=== PATIENT | female | born 1965 | race Caucasian/White ===

== ENCOUNTER 2020-08-22 12:04 | Inpatient (IN) | payer BC, OTHER ==
[~2020-08-22] VITALS: Ht 160 cm; Wt 96.0 kg
--- NOTE | 2020-08-22 12:24 | NUR ---
First contact with pt. Pt c/o L flank pain x2 days. Pt with hx of kidney stones, states this feels similar. Pt ambulatory to bathroom and back to bed without difficulty. Urine sample obtained, labeled at bedside, sent to lab. Pt placed in gown, positioned for comfort in bed. Continuous oxygen and BP Monitors applied, all safety measures observed.
[2020-08-22 12:41] LABS: MICROSCOPIC INDICATED
[2020-08-22] MEDS ORDERED: KETOROLAC 30 MG/1 ML ONE (13:11)
[2020-08-22] MEDS ORDERED: ONDANSETRON 2MG/ML, 2ML ONE ×2 (13:11→19:12)
[2020-08-22] MEDS ORDERED: KETOROLAC 30 MG/1 ML IVPush ONE (13:30)
[2020-08-22] MEDS ORDERED: ONDANSETRON 2MG/ML, 2ML IVPush ONE (13:30)
[2020-08-22] MEDS ORDERED: SODIUM CHLORIDE 0.9% 1,000ML IV ONE (13:30)
--- NOTE | 2020-08-22 13:47 | NUR ---
Pt medicated for pain per MAR, POC discussed. Pt denies other needs.
[2020-08-22] MEDS ORDERED: CEFTRIAXONE PMX 1GM/50ML 50 ML IV ONE (14:00)
--- NOTE | 2020-08-22 14:39 | NUR ---
Pt reports pain resolved after medications. Pt resting in bed, denies other needs.
[2020-08-22 14:49] LABS: BASOPHILS % (AUTO) 0 % (0-1); EOSINOPHILS % (AUTO) 0 % (1-7); LYMPHOCYTES % (AUTO) 12 % (22-44); MEAN CORPUSCULAR HEMOGLOBIN 29.6 pg (27.0-34.8); MEAN CORPUSCULAR HGB CONC 34.1 g/dL (32.4-35.8); MEAN PLATELET VOLUME 9.6 fL (7.4-10.4); MONOCYTES % (AUTO) 10 % (2-9); NEUTROPHILS % (AUTO) 78 % (42-75); PLATELET COUNT 218 x10^3/uL (130-400); RED BLOOD COUNT 4.93 x10^6/uL (3.82-5.3)
[2020-08-22] MEDS ORDERED: CEFTRIAXONE PMX 1GM/50ML 50 ML ONE (14:49)
--- NOTE | 2020-08-22 14:52 | NUR ---
IV abx initiated per NOV. Pt resting in bed, NADN ,denies needs.
[2020-08-22] MEDS ORDERED: PROP80CA3 PO (14:53)
[2020-08-22 14:57] LABS: ALBUMIN 3.3 g/dL (3.4-5.0); ANION GAP 7 mmol/L (5-15); CALCIUM 8.9 mg/dL (8.5-10.1); CHLORIDE 106 mmol/L (98-107)
[2020-08-22 14:58] LABS: CREATININE 1.21 mg/dL (0.55-1.02)
[2020-08-22 15:39] LABS: MD SCAN
--- NOTE | 2020-08-22 15:47 | NUR ---
Dr. Bañuelos at bedside to discuss POC with pt. Pt denies needs at this time.
--- NOTE | 2020-08-22 15:58 | NUR ---
Report called to Marlee MONTILLA in pre op. OR to come get pt at approximately 1730.
--- NOTE | 2020-08-22 16:13 | NUR ---
POC discussed with pt. Pt ambulatory to bathroom and back to bed without difficulty. Pt advised that she should remove all clothing and jewelry before she goes to pre op.
[2020-08-22] MEDS ORDERED: HYDROmorphone 2 MG/ML, 1ML IVPush PRN (17:00)
[2020-08-22] MEDS ORDERED: ACETAMINOPHEN 325 MG TABLET PO PRN ×2 (17:00→19:00)
[2020-08-22] MEDS ORDERED: TEMAZEPAM 15 MG CAPSULE PO PRN (17:00)
[2020-08-22] MEDS ORDERED: HYDROcodone/APAP 5/325 TABLET PO PRN (17:00)
[2020-08-22] MEDS ORDERED: ONDANSETRON ODT 4 MG PO PRN (17:00)
[2020-08-22] MEDS ORDERED: HYDROmorphone 1 MG/ML, 1ML INJ ONE (17:24)
[2020-08-22] MEDS ORDERED: LORazepam 2 MG/ML, 1ML IVPush PRN ×2 (17:30→19:00)
--- NOTE | 2020-08-22 17:32 | NUR ---
Pt medicated for 6/10 pain per MAR, denies other needs. Awaiting OR readiness for pt.
[2020-08-22] MEDS ORDERED: TAMSULOSIN 0.4 MG CAP.ER.24H PO ONE (18:00)
[2020-08-22] MEDS ORDERED: FENTANYL PF 100 MCG/2ML ONE (18:39)
[2020-08-22] MEDS ORDERED: PROPOFOL 10 MG/ML, 20ML ONE ×2 (18:49→19:12)
[2020-08-22] MEDS ORDERED: HYDROmorphone 1 MG/ML, 1ML INJ IVPush PRN (19:00)
[2020-08-22] MEDS ORDERED: PROMETHAZINE 25 MG SUPP PR PRN (19:00)
[2020-08-22] MEDS ORDERED: METHOCARBAMOL 1,000 MG in DEXTROSE 5% 100 ML IV PRN (19:00)
[2020-08-22] MEDS ORDERED: OXYcodone 5 MG/5 ML ORAL.SOL UDC PO PRN (19:00)
[2020-08-22] MEDS ORDERED: PROMETHAZINE 25 MG/ML, 1ML IVPush PRN (19:00)
[2020-08-22] MEDS ORDERED: FENTANYL PF 100 MCG/2ML IV PRN (19:00)
[2020-08-22] MEDS ORDERED: DEXAMETHASONE 4 MG/ML, 1ML ONE (19:12)
[2020-08-22] MEDS ORDERED: CEFAZOLIN 1,000 MG ONE (19:12)
[2020-08-22 20:30] VITALS: BP 112/71
[2020-08-22] MEDS: PROPRANOLOl 80 MG CAP.SA.24H PO SCH (20:32)
[2020-08-22] MEDS: KETOROLAC 30 MG/1 ML IV PRN (20:32)
[2020-08-22 22:04] VITALS: BP 81/48
[2020-08-22 22:45] VITALS: BP 90/56
[2020-08-22] MEDS: NS + 20MEQ KCL 1,000 ML IV SCH (23:00)
[2020-08-23 00:05] VITALS: BP 90/60
[2020-08-23 03:34] VITALS: BP 104/66
[2020-08-23 06:52] LABS: ANION GAP 8 mmol/L (5-15); CHLORIDE 110 mmol/L (98-107)
[2020-08-23 06:54] LABS: CREATININE 1.14 mg/dL (0.55-1.02)
[2020-08-23] MEDS: NS + 20MEQ KCL 1,000 ML IV SCH (06:57)
[2020-08-23 07:01] VITALS: BP 98/66
[2020-08-23 09:22] LABS: BASOPHILS % (AUTO) 0 % (0-1); EOSINOPHILS % (AUTO) 0 % (1-7); LYMPHOCYTES % (AUTO) 10 % (22-44); MEAN CORPUSCULAR HEMOGLOBIN 29.8 pg (27.0-34.8); MEAN CORPUSCULAR HGB CONC 33.8 g/dL (32.4-35.8); MEAN PLATELET VOLUME 8.8 fL (7.4-10.4); MONOCYTES % (AUTO) 6 % (2-9); NEUTROPHILS % (AUTO) 83 % (42-75); PLATELET COUNT 197 x10^3/uL (130-400); RED BLOOD COUNT 4.74 x10^6/uL (3.82-5.3); RED CELL DISTRIBUTION WIDTH 13.7 % (9.6-15.2)
[2020-08-23 09:30] LABS: MD NO
[2020-08-23] MEDS: CEFTRIAXONE PMX 1GM/50ML 50 ML IV SCH (11:00)
[2020-08-23 13:47] VITALS: BP 92/60
[2020-08-23] MEDS ORDERED: CEFTRIAXONE PMX 1GM/50ML 50 ML IV SCH (15:00)
[2020-08-23] MEDS: KETOROLAC 30 MG/1 ML IV PRN (15:21)
[2020-08-23 20:13] VITALS: BP 113/77
[2020-08-23] MEDS: PROPRANOLOl 80 MG CAP.SA.24H PO SCH (20:20)
[2020-08-24 01:07] VITALS: BP 105/70
[2020-08-24 07:57] VITALS: BP 110/71
[2020-08-24] MEDS ORDERED: CEFD300C37 PO (09:12)
[2020-08-24 09:52] LABS: BASOPHILS % (AUTO) 0 % (0-1); EOSINOPHILS % (AUTO) 1 % (1-7); LYMPHOCYTES % (AUTO) 20 % (22-44); MEAN CORPUSCULAR HEMOGLOBIN 30.3 pg (27.0-34.8); MEAN CORPUSCULAR HGB CONC 34.6 g/dL (32.4-35.8); MEAN PLATELET VOLUME 9.2 fL (7.4-10.4); MONOCYTES % (AUTO) 7 % (2-9); NEUTROPHILS % (AUTO) 72 % (42-75); PLATELET COUNT 201 x10^3/uL (130-400); RED CELL DISTRIBUTION WIDTH 13.5 % (9.6-15.2)
[2020-08-24] MEDS: CEFTRIAXONE PMX 1GM/50ML 50 ML IV SCH (09:54)
[2020-08-24 10:00] LABS: MD NO
[2020-08-24 12:19] VITALS: BP 114/77
== END 2020-08-24 12:33 | disposition home or self-care (01) | DRG 853 ==
LOC: ED 15:16 → SUATTDRO 16:40 → EDIP 17:26 → OBSVTOIN 17:26 → 4NE 20:12 → DCLOUNGE 08-24 12:27
PROVIDERS: ADMIT Internal Medicine; ATTEND Hospitalist
PROC: BT1F1ZZ Fluoroscopy of Left Kidney, Ureter and Bladder using Low Osmolar Contrast (ICD-10-PCS; 2020-08-22)
PROC: 0T778DZ Dilation of Left Ureter with Intraluminal Device, Via Natural or Artificial Opening Endoscopic (ICD-10-PCS; principal; 2020-08-22 17:30)
DX: A41.9 Sepsis, unspecified organism (principal); N17.0 Acute kidney failure with tubular necrosis; N13.6 Pyonephrosis; E87.6 Hypokalemia; Z87.442 Personal history of urinary calculi; Z88.5 Allergy status to narcotic agent; Z98.51 Tubal ligation status; Z20.828 Contact with and (suspected) exposure to other viral communicable diseases
CPT/HCPCS: 36415; 74176; 80048; 81001; 82040; 83605; 85025; 87040; 87086; 87635; G0378; J0690; J0696; J1100; J1170; J1885; J2405; J2704; J3010; J3480; C2617; J7030

== ENCOUNTER → 2020-09-04 | Outpatient (CLI) | payer OTHER ==
[~2020-09-04] MED LIST: CEFD300C37 PO; PROP80CA3 PO
== END | disposition home or self-care (01) ==
LOC: STAR 11:44
PROVIDERS: ATTEND Anesthesiology
DX: Z20.828 Contact with and (suspected) exposure to other viral communicable diseases (principal)
CPT/HCPCS: 87635

== ENCOUNTER 2020-09-10 10:28 | Day surgery (SDC) | payer OTHER ==
[2020-09-10 10:47] VITALS: BP 115/78
[2020-09-10] MEDS ORDERED: CHLORHEXIDINE 15 ML UDC MM STA (10:53)
[2020-09-10] MEDS ORDERED: CHLORHEXIDINE 15 ML UDC ONE (10:58)
[2020-09-10] MEDS ORDERED: LACTATED RINGERS 1,000 ML IV SCH (11:00)
[2020-09-10] MEDS ORDERED: FENTANYL PF 250 MCG/5ML ONE (12:00)
[2020-09-10] MEDS ORDERED: MIDAZOLAM 1 MG/ML, 2ML ONE (12:24)
[2020-09-10] MEDS ORDERED: DEXAMETHASONE 4 MG/ML, 1ML ONE (12:29)
[2020-09-10] MEDS ORDERED: PROPOFOL 10 MG/ML, 20ML ONE (12:29)
[2020-09-10] MEDS ORDERED: ONDANSETRON 2MG/ML, 2ML ONE (12:29)
[2020-09-10] MEDS ORDERED: CEFAZOLIN 1,000 MG ONE (12:29)
[2020-09-10] MEDS ORDERED: METHOCARBAMOL 1,000 MG in DEXTROSE 5% 100 ML IV PRN (13:30)
[2020-09-10] MEDS ORDERED: FENTANYL PF 100 MCG/2ML IV PRN (13:30)
[2020-09-10] MEDS ORDERED: HYDROmorphone 1 MG/ML, 1ML INJ IVPush PRN (13:30)
[2020-09-10] MEDS ORDERED: MEPERIDINE/PF 25MG/0.5ML IVPush PRN (13:30)
[2020-09-10] MEDS ORDERED: LORazepam 2 MG/ML, 1ML IVPush PRN (13:30)
[2020-09-10] MEDS ORDERED: ACETAMINOPHEN 325 MG TABLET PO PRN (13:30)
[2020-09-10] MEDS ORDERED: hydrALAzine 20 MG/ML, 1ML IV PRN (13:30)
[2020-09-10] MEDS ORDERED: EPHEDRINE 50 MG/ML, 1ML IVPush PRN (13:30)
[2020-09-10] MEDS ORDERED: PROMETHAZINE 25 MG/ML, 1ML IVPush PRN (13:30)
[2020-09-10] MEDS ORDERED: LABETALOL 5MG/ML, 20ML IV PRN (13:30)
[2020-09-10] MEDS ORDERED: OXYcodone 5 MG/5 ML ORAL.SOL UDC PO PRN (13:30)
[2020-09-10] MEDS ORDERED: ONDANSETRON 2MG/ML, 2ML IVPush PRN (13:30)
[2020-09-10] MEDS ORDERED: FENTANYL PF 100 MCG/2ML ONE (13:35)
[2020-09-10] MEDS ORDERED: OMNIPAQUE 350 MG/ML, 100ML BOTTLE IV ONE (13:38)
[2020-09-10] MEDS ORDERED: OMNIPAQUE 350 MG/ML, 50 ML BOTTLE ONE (13:49)
[2020-09-10] MEDS ORDERED: MEPERIDINE/PF 25MG/ML,1ML ONE (13:52)
[2020-09-10] MEDS ORDERED: PHENAZOPYRIDINE 200 MG TABLET PO PRN (14:00)
[2020-09-10] MEDS ORDERED: PLEASE ENTER HEIGHT AND WEIGHT MC SCH (14:00)
[2020-09-10] MEDS ORDERED: OPIUM/BELLADONNA SUPP.RECT 16.2-30 MG PR PRN (14:00)
[2020-09-10] MEDS ORDERED: KETOROLAC 30 MG/1 ML IM SCH (14:00)
[2020-09-10] MEDS ORDERED: KETOROLAC 30 MG/1 ML ONE (14:32)
[2020-09-10] MEDS ORDERED: HYDR-3240 PO (15:20)
[2020-09-10] MEDS ORDERED: KETOROLAC 30 MG/1 ML IVPush SCH (20:00)
== END 2020-09-10 16:10 | disposition home or self-care (01) ==
LOC: OR 10:28
PROVIDERS: ATTEND Urology
DX: N20.2 Calculus of kidney with calculus of ureter (principal); G47.33 Obstructive sleep apnea (adult) (pediatric); Z79.899 Other long term (current) drug therapy; Z88.5 Allergy status to narcotic agent; Z98.890 Other specified postprocedural states; Z95.810 Presence of automatic (implantable) cardiac defibrillator
CPT/HCPCS: 52356; 74420; 82360; 88300; C2617; J1885; J2175; J2250; J3010; Q9967; 74430; J0690; J1100; J2405; J2704